=== PATIENT | male | born 1995 | race Two or more races ===

== ENCOUNTER 2018-04-15 02:11 | Emergency (ER) | payer MEDICAID ==
[~2018-04-15] VITALS: Ht 165.1 cm; Wt 65.9 kg
[2018-04-15 03:00] VITALS: BP 115/81
[2018-04-15] MEDS ORDERED: HYDR25TA11 PO (11:34)
[2018-04-15] MEDS ORDERED: TRAZ50TA18 PO (11:35)
== END 2018-04-15 03:01 | disposition home or self-care (01) ==
LOC: ED 02:37
DX: F41.1 Generalized anxiety disorder (principal)
CPT/HCPCS: 93005; 99284

== ENCOUNTER 2018-04-15 09:55 | Observation (INO) | payer MEDICAID ==
[~2018-04-15] VITALS: Ht 167.6 cm; Wt 76.5 kg
[2018-04-15 10:21] LABS: BASOPHILS # (AUTO) 0.04 x10^3/uL (0-0.1); BASOPHILS % (AUTO) 0 % (0-1); EOSINOPHILS # (AUTO) 0.21 x10^3/uL (0-0.4); EOSINOPHILS % (AUTO) 2 % (1-7); LYMPHOCYTES # (AUTO) 1.61 x10^3/uL (1-3.4); LYMPHOCYTES % (AUTO) 18 % (22-44); MD NO; MEAN CORPUSCULAR HEMOGLOBIN 30.2 pg (27.5-34.5); MEAN CORPUSCULAR HGB CONC 33.5 g/dL (33.2-36.2); MEAN CORPUSCULAR VOLUME 90.4 fL (81-97); MEAN PLATELET VOLUME 9.4 fL (7.4-10.4); MONOCYTES # (AUTO) 0.53 x10^3/uL (0.2-0.8); MONOCYTES % (AUTO) 6 % (2-9); NEUTROPHILS # (AUTO) 6.71 x10^3/uL (1.8-6.8); NEUTROPHILS % (AUTO) 74 % (42-75); PLATELET COUNT 307 x10^3/uL (130-400); RED BLOOD COUNT 5.49 x10^6/uL (4.38-5.82); RED CELL DISTRIBUTION WIDTH 14.2 % (9.4-14.8)
[2018-04-15 10:32] LABS: ALANINE AMINOTRANSFERASE 38 U/L (12-78); ALBUMIN 3.8 g/dL (3.4-5.0); ANION GAP 9 mmol/L (5-15); CALCIUM 8.7 mg/dL (8.5-10.1); CHLORIDE 103 mmol/L (98-107); CREATININE 1.01 mg/dL (0.7-1.3); SALICYLATE LEVEL 1.9 mg/dL (2.8-20.0)
[2018-04-15 10:43] LABS: ALKALINE PHOSPHATASE 76 U/L (45-117); BILIRUBIN,TOTAL 0.6 mg/dL (0.2-1.0); THYROID STIMULATING HORMONE 0.974 mIU/L (0.358-3.740); TOTAL PROTEIN 7.4 g/dL (6.4-8.2)
[2018-04-15 10:46] LABS: ACETAMINOPHEN < 2 mcg/mL (10-30)
[2018-04-15] MEDS ORDERED: HYDR25TA11 PO (11:34)
[2018-04-15] MEDS ORDERED: TRAZ-136 PO (11:35)
[2018-04-15 12:02] LABS: AMPHETAMINE SCREEN, URINE Negative (Negative); BARBITURATE SCREEN, URINE Negative (Negative); BENZODIAZEPINE SCREEN, URINE Negative (Negative); CANNABINOID SCREEN, URINE Negative (Negative); COCAINE SCREEN, URINE Negative (Negative); METHADONE SCREEN, URINE Negative (Negative)
[2018-04-15 12:03] LABS: OPIATE SCREEN, URINE Negative (Negative)
[2018-04-15] MEDS ORDERED: OLANZAPINE 10 MG INJ IM ONE (13:00)
[2018-04-15] MEDS ORDERED: OLANZAPINE 10 MG TABLET ONE (13:18)
[2018-04-15] MEDS ORDERED: OLANZAPINE 10 MG TABLET PO SCH (13:30)
[2018-04-15] MEDS ORDERED: LORazepam 2 MG/ML, 1ML IM PRN ×2 (14:00→15:30)
[2018-04-15] MEDS ORDERED: LORazepam 2 MG/ML, 1ML ONE (14:05)
[2018-04-15] MEDS ORDERED: ZIPRASIDONE 20 MG INJ IM ONE ×2 (15:04→15:30)
[2018-04-15] MEDS ORDERED: ACETAMINOPHEN 325 MG TABLET PO PRN (15:30)
[2018-04-15] MEDS ORDERED: LORazepam 1MG TABLET PO PRN (15:30)
[2018-04-15 18:47] VITALS: BP 126/84
[2018-04-15] MEDS: TRAZODONE 50MG TABLET PO SCH (21:00)
[2018-04-16 00:28] VITALS: BP 125/82
[2018-04-16 08:00] VITALS: BP 121/85
[2018-04-16] MEDS ORDERED: ZIPRASIDONE 20 MG INJ IM PRN (08:30)
[2018-04-16] MEDS: TRAZODONE 50MG TABLET PO SCH (21:29)
== END 2018-04-16 21:45 ==
LOC: ED 10:26 → EDIP 13:17 → 2N 18:36
PROVIDERS: ADMIT Hospitalist; ATTEND Hospitalist
DX: F23 Brief psychotic disorder (principal); F41.9 Anxiety disorder, unspecified
CPT/HCPCS: 36415; 80053; 80307; 80329; 84443; 85025; 93005; 96372; 99285; G0378; J2060; J3486; G0480